=== PATIENT | female | born 2000 | race Two or more races ===

== ENCOUNTER 2024-12-11 09:18 | Inpatient (IN) ==
[2024-12-11 09:37] VITALS: BMI 25.5
[2024-12-11 09:43] LABS: BILIRUBIN,URINE NEGATIVE (NEGATIVE); BLOOD/HEMOGLOBIN,URINE 1+ (NEGATIVE); GLUCOSE, URINE NEGATIVE (NEGATIVE); KETONES,URINE NEGATIVE (NEGATIVE); LEUKOCYTE ESTERASE ,URINE 1+ (NEGATIVE); NITRITES,URINE NEGATIVE (NEGATIVE); PH,URINE 6.5 (5.0 - 8.0); PROTEIN,URINE 2+ (NEGATIVE); UROBILINOGEN,URINE 1+ (NORMAL)
[2024-12-11 09:46] LABS: AMNISURE ROM TEST THERE IS A RUPTURE (NO RUPTURE); COLOR,URINE YELLOW (YELLOW)
[2024-12-11 09:47] LABS: APPEARANCE,URINE CLEAR (CLEAR)
[2024-12-11 09:52] LABS: BACTERIA,URINE NEGATIVE /HPF (NEGATIVE); SQUAMOUS EPITHELIAL CELL,UR RARE /HPF (NEGATIVE)
[2024-12-11] MEDS: ANCEF VIAL 1 GRAM IVP ONE (10:40)
[2024-12-11] MEDS: LR 1,000 ML IV 1,500 ML IV PRN (10:40)
[2024-12-11] MEDS: LR 1,000 ML IV 1,000 ML IV ONE ×3 (10:45→11:07)
[2024-12-11] MEDS: VERSED ONE (10:47)
[2024-12-11] MEDS: MARCAINE SPINAL ONE (10:48)
[2024-12-11] MEDS: PITOCIN ONE (10:48)
[2024-12-11] MEDS: XYLOCAINE 2 % (PLAIN) ONE (10:48)
[2024-12-11] MEDS: PRECEDEX INJ VIAL ONE (10:51)
[2024-12-11] MEDS: NOZIN NASAL SANITIZER TP ONE (11:07)
--- NOTE | 2024-12-11 11:07 | US ---
EXAM: OB GREATER THAN 14 WEEKS LIMIT HISTORY: CONFIRM PRESENTATION; COMPARISON: None. TECHNIQUE: Limited OB ultrasound performed to confirm presentation FINDINGS: A single, living intrauterine is identified in breech presentation. heart motion was identified with the heart rate of 142 beats per minute. Placenta and amniotic fluid images not obtained. IMPRESSION: Single, living intrauterine in breech presentation. THIS IS AN ELECTRONICALLY VERIFIED FINAL REPORT 12/11/2024 11:03 AM - Electronically signed by Jamal Macias MD
[2024-12-11 11:10] LABS: ALANINE AMINOTRANSFERASE 21 Units/L (12-78); ALBUMIN 2.8 g/dL (3.4-5.0); ALKALINE PHOSPHATASE 394 Units/L (46-116); ASPARTATE AMINO TRANSFERASE 31 Units/L (15-37); BLOOD UREA NITROGEN 10 mg/dL (7-18); CALCIUM 9.1 mg/dL (8.5-10.1); CARBON DIOXIDE 23.7 mmol/L (21-32); CHLORIDE 103 mmol/L (98-107); COR CA(FOR HYPOALB) 10.1 mg/dL (8.5-10.1); CREATININE 0.72 mg/dL (0.55-1.02); GLUCOSE 87 mg/dL (65-99); SODIUM 136 mmol/L (136-145); TOTAL PROTEIN 7.2 g/dL (6.4-8.2); eGFR NON BLACK RACES > 60 (>60)
[2024-12-11 11:26] LABS: BASOPHILS # (AUTO) 0.1 X10^3/uL (0.0-0.1); BASOPHILS % (AUTO) 0.8 % (0.2-1.0); EOSINOPHILS % (AUTO) 0.4 % (0.9-2.9); HEMATOCRIT 37.3 % (36.0-47.0); HEMOGLOBIN 12.2 g/dL (12.0-16.0); LYMPHOCYTES # (AUTO) 3.1 X10^3/uL (1.3-2.9); LYMPHOCYTES % (AUTO) 31.5 % (21.0-51.0); MEAN CORPUSCULAR HEMOGLOBIN 25.6 pg (27.0-34.0); MEAN CORPUSCULAR HGB CONC 32.8 g/dL (33.0-35.0); MEAN CORPUSCULAR VOLUME 78.3 fL (80.0-100.0); MEAN PLATELET VOLUME 10.6 fL (7.4-11.0); MONOCYTES # (AUTO) 0.4 x10^3/uL (0.3-0.8); MONOCYTES % (AUTO) 4.3 % (0.0-13.0); NEUTROPHILS # (AUTO) 6.3 x10^3/uL (2.2-4.8); PLATELET COUNT 208 X10^3/uL (150.0-450.0); RED BLOOD COUNT 4.77 X10^6/uL (3.5-5.4); RED CELL DISTRIBUTION WIDTH 14.3 % (11.6-16.5)
[2024-12-11] MEDS: ANCEF VIAL 1 GRAM ONE (11:38)
[2024-12-11] MEDS: NS 100 ML IV 100 ML ONE (11:38)
[2024-12-11] MEDS: PITOCIN IVP PRN (12:08)
[2024-12-11] MEDS: VERSED IVP PRN (12:26)
[2024-12-11] MEDS ORDERED: REGLAN INJ 10 MG VIAL IVP PRN (12:33)
[2024-12-11] MEDS ORDERED: BENADRYL INJ 50 MG VIAL IVP PRN (12:33)
[2024-12-11] MEDS ORDERED: DILAUDID INJ IVP PRN (12:33)
[2024-12-11] MEDS ORDERED: ZOFRAN INJ 4 MG VIAL IVP PRN ×2 (12:33→13:07)
[2024-12-11] MEDS: OXYTOCIN 20 UNIT/1,000 ML-NS 20 UNIT/1,000 ML PLAST..BAG IV SCH (13:07)
[2024-12-11] MEDS: PERCOCET TAB 5/325 MG PO PRN (14:40)
[2024-12-11] MEDS ORDERED: ADACEL or BOOSTRIX TDaP VACCINE IM ONE (16:52)
[2024-12-11] MEDS: MOTRIN TAB 800 MG PO PRN (17:14)
[2024-12-11] MEDS: ADACEL or BOOSTRIX TDaP VACCINE IM ONE (17:26)
[2024-12-12] MEDS: TORADOL 30 MG VIAL IVP PRN (01:06)
[2024-12-12] MEDS: MYLICON TAB 80 MG CHEW PO PRN (01:06)
[2024-12-12 04:03] VITALS: RESP 18
[2024-12-12 05:14] LABS: HEMATOCRIT 28.9 % (36.0-47.0); HEMOGLOBIN 9.6 g/dL (12.0-16.0)
[2024-12-12] MEDS: PRENATAL PLUS PO SCH (08:08)
[2024-12-12] MEDS ORDERED: PERCOCET TAB 5/325 MG PO PRN (10:03)
[2024-12-12] MEDS: PERCOCET TAB 5/325 MG PO PRN (12:50)
[2024-12-13] MEDS: NS 100 ML IV 100 ML with VENOFER 400 MG IV ONE (10:32)
[2024-12-13 12:20] VITALS: BP 117/65; PULSE 58; TEMP 97.6; O2SAT 96
== END 2024-12-13 16:20 | disposition home or self-care (01) | DRG 788 ==
LOC: ER 09:18 → LD 10:03 → ICU 13:07
PROVIDERS: ADMIT Obstetrics & Gynecology Obstetrics; ATTEND Obstetrics & Gynecology Obstetrics